=== PATIENT | female | born 1985 | race Caucasian/White ===

== ENCOUNTER 2020-05-19 22:02 | Emergency (ER) | payer SELFPAY ==
[~2020-05-19] VITALS: Ht 165.1 cm; Wt 97.7 kg
[2020-05-19 22:13] VITALS: BP 164/104
[2020-05-19] MEDS ORDERED: ESCITALOPRAM OX10 MG PO (22:22)
[2020-05-19] MEDS ORDERED: QUET200T4 PO (22:22)
[2020-05-19] MEDS ORDERED: PROP120C44 PO (22:25)
[2020-05-19] MEDS ORDERED: CLON2TAB PO (22:26)
--- NOTE | 2020-05-19 22:29 | ED.ADGEN ---
Past Medical History Past Medical History: A-Fib, Anxiety, Hypertension, Migraines Additional Past Medical Histor: Drug abuse, mitral valve prolapse Past Surgical History: Cholecystectomy, Other Additional Past Surgical Histo: breast reduction Smoking Status: Current Every Day Smoker Alcohol Use: None Drug Use: Amphetamine (Quit using 45 days ago) General Adult EDM: Chief Complaint: MEDICATION REFILL HPI: HPI: Patient is a 35 year old female who presents to the emergency room from [facility] drug treatment facility with request for clarification on her clonazepam dosage. Patient states that the nurse at [facility] refuses to give her her clonazepam 0.5 mg 3 times a day because she does not have the tapering dose order. Patient states she has been taking medication for over 12 years and she brought her prescribed medications with her to the treatment facility. She reports concerns that she will have a seizure she does not take this medication. Patient denies any other complaints Review of Systems: Review of Systems: Complete ROS is negative unless otherwise noted in HPI. Current Medications: Current Medications Medications (Trade) Dose Ordered Sig/Christina Start Time Stop Time Status Last Admin Dose Admin Clonazepam (KlonoPIN) 0.5 mg PRN Q6HRS PRN 05/19/20 22:30 05/19/20 22:38 DC 05/19/20 22:35 0.5 MG Allergies: Allergies: Allergies Coded Allergies Type Severity Reaction Last Updated Verified ziprasidone Allergy Unknown "MY JAW IS LOCKED UP" 05/19/20 Yes Physical Exam: PE: See Above Constitutional: Well developed, well nourished, no acute distress, non-toxic appearance, anxious. [] HENT: Normocephalic, atraumatic, bilateral external ears normal, nose normal. [] Eyes: PERRLA, EOMI, conjunctiva normal, no discharge. [] Neck: Normal range of motion, no stridor. [] Cardiovascular:Heart rate regular rhythm Lungs & Thorax: Respirations even and unlabored, no retractions, no respiratory distress Skin: Warm, dry, no erythema, no rash. [] Extremities: No cyanosis, ROM intact, no edema. [] Neurologic: Alert and oriented X 3, no focal deficits noted. [] Psychologic: Affect anxious, judgement normal, mood normal. [] Current Patient Data: Vital Signs: Vital Signs Date Time Temp Pulse Resp B/P (MAP) Pulse Ox O2 Delivery O2 Flow Rate FiO2 05/19/20 22:13 97.7 105 22 164/104 (124) 96 Room Air 97.7 EKG: EKG: [] Heart Score: Risk Factors: Risk Factors: DM, Current or recent (<one month) smoker, HTN, HLP, family history of CAD, obesity. Risk Scores: Score 0 - 3: 2.5% MACE over next 6 weeks - Discharge Home Score 4 - 6: 20.3% MACE over next 6 weeks - Admit for Clinical Observation Score 7 - 10: 72.7% MACE over next 6 weeks - Early Invasive Strategies Radiology/Procedures: Radiology/Procedures: [] Course & Med Decision Making: Course & Med Decision Making Pertinent Labs and Imaging studies reviewed. (See chart for details) 35-year-old female presented to the emergency room with request for clarification of her daily clonazepam prescription. 5- I spoke with Eladia UNDERWOOD at [facility] and advised her that taper cannot be prescribed in the ER and that clarification needs to come from the prescribing physician or the physician at the treatment facility. I advised the patient that she needs to get clarification of how this medication is to be taken from the physician that prescribed the medication or from the physician at the treatment program that she is currently at. I advised her that I will give her a one-time dose of her medication and that a tapering dose would not be prescribed in the ER. Patient was instructed to return to the emergency room if her symptoms worsened or fever develop. Patient verbalized an understanding of home care, medications, follow-up, and return to ED instructions and was in agreement with the plan of care. [] Fernanda Disclaimer: Fernanda Disclaimer: This electronic medical record was generated, in whole or in part, using a voice recognition dictation system. Departure Departure Impression: Primary Impression: Anxiety Disposition: 01 DC HOME SELF CARE/HOMELESS Condition: STABLE Patient Instructions: Anxiety and Panic Attacks, Kest-uh-Pfsm Additional Instructions: You were given a one-time dose of your clonazepam in the ER tonight. You need to follow up with your prescribing physician or your attending physician at [facility] for further clarification of how this medication is to be taken. A taper will not be prescribed by the ER. Return to the ER if you develop worsening symptoms or a fever. CATALINA MCLEAN [employer] May 19, 2020 22:29
[2020-05-19] MEDS ORDERED: clonazePAM 0.5 MG TABLET PO PRN (22:30)
== END 2020-05-19 22:35 | disposition home or self-care (01) ==
LOC: ER 22:02
DX: F41.9 Anxiety disorder, unspecified (principal); R56.9 Unspecified convulsions; I48.20 Chronic atrial fibrillation, unspecified; I10 Essential (primary) hypertension; G43.909 Migraine, unspecified, not intractable, without status migrainosus; F17.200 Nicotine dependence, unspecified, uncomplicated; F19.90 Other psychoactive substance use, unspecified, uncomplicated; Z90.49 Acquired absence of other specified parts of digestive tract; Z98.890 Other specified postprocedural states; Z88.8 Allergy status to other drugs, medicaments and biological substances
CPT/HCPCS: 99283